=== PATIENT | female | born 1980 | race Caucasian/White ===

== ENCOUNTER 2021-05-30 17:05 | Emergency (ER) | payer OTHER, SELFPAY ==
[2021-05-30 17:18] VITALS: BP 125/68; PULSE 118; RESP 20; O2SAT 98
[2021-05-30 19:42] VITALS: BP 152/98; PULSE 117; RESP 20; TEMP 36.3; O2SAT 98
[2021-05-30 20:47] VITALS: BP 123/98; PULSE 102; RESP 25; O2SAT 100
[2021-05-30] MEDS: SODIUM CHLORIDE 0.9% IV 1,000 ML 999 ML IV CONT (21:26)
[2021-05-30] MEDS: ONDANSETRON INJ 4 MG/2 ML VIAL IV PUSH (21:26)
--- NOTE | 2021-05-30 21:37 | ED.GENADULT ---
HPI - General Adult General Chief complaint: Upper Respiratory Infection Stated complaint: COVID+ Time Seen by Provider: 05/30/21 20:26 Source: patient History of Present Illness HPI narrative: 41-year-old female presents emerge department for evaluation of nausea and vomiting that has worsened since her Covid diagnosis. Patient states she is began having symptoms a week ago. Patient tested positive on Monday. Patient states since that point she has had decreased p.o. intake. Patient reports a history of migraines and states she currently does have a migraine. Patient also does report some left upper quadrant abdominal pain that is worse with emesis. Related Data Allergies Allergy/AdvReac Type Severity Reaction Status Date / Time No Known Allergies Allergy Mild Verified 05/30/21 20:46 Review of Systems Review of Systems: CONSTITUTIONAL: Denies fever, chills, or sweats. EYES: Denies visual changes, redness, or discharge. ENT: Denies rhinorrhea, congestion, sore throat, or otalgia. CARDIOVASCULAR: Denies chest pain, palpitations, or edema. RESPIRATORY: Cough and congestion GASTROINTESTINAL: Left upper quadrant abdominal pain with nausea GENITOURINARY: Denies dysuria or hematuria. SKIN: Denies rash or itching. MUSCULOSKELETAL: Denies back pain, joint pain, or myalgia. NEUROLOGIC: Headache PSYCHIATRIC: Anxiety Exam Narrative: APPEARANCE: Well appearing, no pain, no distress, well-nourished. HEAD: normocephalic, atraumatic. EYES: PERRLA/EOMI, conjunctivae clear. NOSE: Normal no drainage RESPIRATORY: Airway patent, respirations nonlabored. Clear to auscultation bilaterally, no rales, rhonchi, wheezing. CARDIOVASCULAR: Regular rate and rhythm without murmurs rubs or gallops. ABDOMINAL: Soft, nontender, nondistended, normal bowel sounds MUSCULOSKELETAL: Moves all extremities. Strength/ROM intact, No edema, No calf tenderness. NEURO: Alert. Cranial nerves II through XII intact. Good gait. Good coordination SKIN: Warm, dry. Normal Color PSYCHIATRIC: Anxiety Course Course Emergency Course: Patient did feel improved with treatment in emergency room. Patient states GI cocktail did help to resolve her abdominal pain. Patient was also treated with Toradol Tylenol and Ativan to help with her anxiety and headache. At time of discharge patient felt significant improvement and was resting comfortably in the bed. Vital Signs Vital signs: Vital Signs Pulse Rate 118 H 05/30/21 17:18 Respiratory Rate 20 05/30/21 17:18 Blood Pressure 125/68 05/30/21 17:18 Pulse Oximetry 98 05/30/21 17:18 Temperature 97.3 F L 05/30/21 19:42 Pulse Rate 104 H 05/31/21 00:51 Respiratory Rate 22 H 05/31/21 00:51 Blood Pressure 130/74 05/31/21 00:51 Pulse Oximetry 94 05/31/21 00:51 Medical Decision Making Vital Signs Vital Signs: Vital Signs Pulse Rate 118 H 05/30/21 17:18 Respiratory Rate 20 05/30/21 17:18 Blood Pressure 125/68 05/30/21 17:18 Pulse Oximetry 98 05/30/21 17:18 Temperature 97.3 F L 05/30/21 19:42 Pulse Rate 104 H 05/31/21 00:51 Respiratory Rate 22 H 05/31/21 00:51 Blood Pressure 130/74 05/31/21 00:51 Pulse Oximetry 94 05/31/21 00:51 Lab Data Lab results reviewed: Yes I reviewed the patient's lab results. Result diagrams: 05/30/21 21:30 05/30/21 21:30 Labs: Lab Results 05/30/21 05/30/21 05/30/21 Range/Units 21:30 21:30 21:30 WBC 2.8 L (4.5-10.0) K/mm3 RBC 4.83 (4.2-5.4) M/mm3 Hgb 13.9 (12.0-15.0) g/dL Hct 41.1 (37.0-47.0) % MCV 85.1 (80-100) fl MCH 28.8 (26-34) pg MCHC 33.8 (32-36) g/dl RDW 13.3 (11.5-14.5) % Plt Count 159 (150-375) k/mm3 MPV 10.7 H (7.4-10.4) fl Immature Gran % (Auto) 0.4 (0-0.5) % Neut % (Auto) 60.3 (45.5-73.1) % Lymph % (Auto) 33.9 (18.3-44.2) % [place] % (Auto) 5.4 (2.6-8.5) % Eos % (Auto) 0.0 (0-4.4) % Baso % (Auto) 0.0 L (0.2-1.2) % Lym
[2021-05-30 21:39] LABS: Hematocrit 41.1 % (37.0-47.0); Hemoglobin 13.9 g/dL (12.0-15.0); Immature Granulocyte Absolute 0.01 K/mm3 (0.00-0.031); Immature Granulocyte Percent A 0.4 % (0-0.5); Lymphocytes Absolute Auto 0.94 K/mm3 (0.9-3.2); Lymphocytes Percent Auto 33.9 % (18.3-44.2); Mean Corpuscular HGB Conc 33.8 g/dl (32-36); Mean Corpuscular Hemoglobin 28.8 pg (26-34); Mean Corpuscular Volume 85.1 fl (80-100); Mean Platelet Volume 10.7 fl (7.4-10.4); Monocytes Absolute Auto 0.2 K/mm3 (0.1-0.6); Monocytes Percent Auto 5.4 % (2.6-8.5); Neutrophils Absolute Auto 1.7 K/mm3 (1.3-6.7); Neutrophils Percent Auto 60.3 % (45.5-73.1); Platelet Count Result 159 k/mm3 (150-375); Red Blood Count 4.83 M/mm3 (4.2-5.4); Red Cell Distribution Width 13.3 % (11.5-14.5); White Blood Count 2.8 K/mm3 (4.5-10.0)
[2021-05-30 21:45] LABS: Lipase 61 U/L (23-300)
[2021-05-30 21:55] LABS: Alanine Aminotransferase 58 U/L (4-35); Albumin Level 4.3 g/dL (3.5-5.1); Alkaline Phosphatase 65 U/L (38-126); Anion Gap 9 mmol/L (8-16); Aspartate Amino Transferase 87 U/L (14-36); Bilirubin,Total 0.5 mg/dL (0.2-1.3); Blood Urea Nitrogen 10 mg/dL (7-17); Calcium 8.7 mg/dL (8.4-10.2); Carbon Dioxide 22 mmol/L (22-30); Chloride 103 mmol/L (98-107); Estimated CRCL calculation 130 ml/min; Estimated Glomerular Filt Rate > 60; Glucose 118 mg/dL (65-110); Potassium 3.4 mmol/L (3.4-5.0); Sodium 134 mmol/L (137-145)
[2021-05-30 22:20] LABS: Add Urine Microscopic? YES; Amorphous Sediment Urine Moderate; Appearance Urine Turbid (Clear); Bacteria Urine Trace /hpf; Bilirubin Urine Negative (Negative); Blood Urine 3+ (Negative); Color Urine Yellow (Yellow); Glucose Urine UA Negative (Negative); Ketones Urine 1+ mg/dL (Negative); Leukocyte Esterase Ur Negative LEU/UL (Negative); Mucus Urine Heavy /lpf; Nitrate Urine Negative (Negative); Protein Urine 2+ mg/dL (Negative); RBC Urine >75 /hpf (0-2); Squamous Epithelial Cell Urine Many /hpf (Few); Urobilinogen Urine Negative mg/dL (<2.0); WBC Urine 0-3 /hpf
[2021-05-30 22:22] LABS: Specific Grav Ur 1.036 (1.001-1.035)
[2021-05-30] MEDS: KETOROLAC 15 MG/ML VIAL (*BKC) IV PUSH (22:36)
[2021-05-30] MEDS: BELLADONNA ALK/PHENOB ELIX 10 ML, MAG HYDROX/ALUMINUM HYD/SIMETH 30 ML, LIDOCAINE HCL 2... PO (22:38)
[2021-05-30 22:42] VITALS: BP 140/87; PULSE 107; RESP 22; O2SAT 97
[2021-05-30 23:30] VITALS: BP 144/86; PULSE 96; RESP 22; O2SAT 94
[2021-05-30] MEDS: LORazepam INJ (*CRX) 2 MG/ML VIAL 1 MG IV PUSH (23:36)
[2021-05-31 00:51] VITALS: BP 130/74; PULSE 104; RESP 22; O2SAT 94
== END 2021-05-31 00:53 | disposition home or self-care (01) ==
PROVIDERS: Emergency Provider Emergency Medicine
DX: U07.1 COVID-19 (principal); R10.12 Left upper quadrant pain; R11.2 Nausea with vomiting, unspecified
CPT/HCPCS: 36415; 80053; 81001; 83605; 83690; 85025; 96361; 96374; 96375; 99284; A9270; J0131; J1885; J2060; J2405; J7030

== ENCOUNTER 2021-06-01 12:19 | Emergency (ER) | payer OTHER, SELFPAY ==
--- NOTE | ~2021-06-01 | CT_ITS ---
EXAMINATION: CTA chest PE abdomen pel DATE: 06/01/2021 14:15 INDICATION: Tachycardia, left upper quadrant abdominal pain, intractable vomiting. Positive Covid. TECHNIQUE: Computed tomography (CT) of the chest, abdomen and pelvis was performed with 100 cc Omnipa que 350 intravenous contrast. Automated exposure control and iterative reconstruction technique were employed. Exam dose: 2396.08 mGy-cm total exam DLP. COMPARISON: 08/10/2017 two-view chest FINDINGS: There are scattered patchy infiltrates throughout both lungs, without pleural effusion, lik miley due to bilateral Covid pneumonia. There is mild lateral mild hilar and mediastinal lymphadenopathy, likely reactive. No thoracic aortic aneurysm or dissection. No pericardial or pleural effusion. The liver, gallbladder, bile ducts, spleen, pancreas, pancreatic duct, and adrenal glands and kidneys are unremarkable except for hepatic steatosis. No urinary tract calculus or hydroureteronephrosis. Retroflexed uterus. The ovaries are unremarkable in appearance. The urinary bladder is unremarkable. Normal caliber of the abdominal aorta. No intraperitoneal or retroperitoneal or pelvic mass lesion or adenopathy or ascites. Normal appendix. No bowel obstruction, bowel wall thickening, pneumatosis or intraperitoneal free air is detected. Small fat-containing umbilical hernia. There is severe degenerative disc disease at L5-S1. Bilateral hip osteoarthritis. No suspicious osteolytic or osteoblastic lesions are noted. IMPRESSION: Diffuse patchy bilateral pulmonary infiltrates likely due to Covid pneumonia, with react mark mild bilateral hilar and mediastinal lymphadenopathy Hepatic steatosis Retroflexed uterus Normal appendix. No bowel obstruction or free air Reviewed, dictated and finalized at [facility] Reviewed, dictated and finalized at [facility] [employer] IMPRESSION: Diffuse patchy bilateral pulmonary infiltrates likely due to Covid pneumonia, with reactive mild bilateral hilar and mediastinal lymphadenopathy Hepatic steatosis Retroflexed uterus Normal appendix. No bowel obstruction or free air
[2021-06-01 12:20] VITALS: BP 112/93; PULSE 112; RESP 20; TEMP 36.9; O2SAT 96
[2021-06-01 13:00] LABS: Basophils Percent Auto 0.4 % (0.2-1.2); Hematocrit 41.3 % (37.0-47.0); Hemoglobin 13.8 g/dL (12.0-15.0); Immature Granulocyte Absolute 0.01 K/mm3 (0.00-0.031); Immature Granulocyte Percent A 0.4 % (0-0.5); Lymphocytes Absolute Auto 0.91 K/mm3 (0.9-3.2); Lymphocytes Percent Auto 34.5 % (18.3-44.2); Mean Corpuscular HGB Conc 33.4 g/dl (32-36); Mean Corpuscular Hemoglobin 28.8 pg (26-34); Mean Corpuscular Volume 86.2 fl (80-100); Mean Platelet Volume 10.9 fl (7.4-10.4); Monocytes Absolute Auto 0.2 K/mm3 (0.1-0.6); Monocytes Percent Auto 6.8 % (2.6-8.5); Neutrophils Absolute Auto 1.5 K/mm3 (1.3-6.7); Neutrophils Percent Auto 57.9 % (45.5-73.1); Platelet Count Result 125 k/mm3 (150-375); Red Blood Count 4.79 M/mm3 (4.2-5.4); Red Cell Distribution Width 13.3 % (11.5-14.5); White Blood Count 2.6 K/mm3 (4.5-10.0)
[2021-06-01 13:11] LABS: Add Urine Microscopic? YES; Appearance Urine Clear (Clear); Bilirubin Urine Negative (Negative); Blood Urine Negative (Negative); Color Urine Yellow (Yellow); Glucose Urine UA Negative (Negative); Ketones Urine 1+ mg/dL (Negative); Leukocyte Esterase Ur Negative LEU/UL (Negative); Mucus Urine Rare /lpf; Nitrate Urine Negative (Negative); Protein Urine 1+ mg/dL (Negative); RBC Urine 0-2 /hpf (0-2); Specific Grav Ur 1.019 (1.001-1.035); Squamous Epithelial Cell Urine Rare /hpf (Few); Urobilinogen Urine Negative mg/dL (<2.0)
[2021-06-01 13:12] LABS: Alanine Aminotransferase 76 U/L (4-35); Albumin Level 4.1 g/dL (3.5-5.1); Alkaline Phosphatase 55 U/L (38-126); Anion Gap 7 mmol/L (8-16); Aspartate Amino Transferase 131 U/L (14-36); Bilirubin,Total 0.5 mg/dL (0.2-1.3); Blood Urea Nitrogen 9 mg/dL (7-17); Calcium 8.6 mg/dL (8.4-10.2); Carbon Dioxide 23 mmol/L (22-30); Chloride 102 mmol/L (98-107); Estimated CRCL calculation 129 ml/min; Estimated Glomerular Filt Rate > 60; Glucose 121 mg/dL (65-110); Lipase 72 U/L (23-300); Potassium 3.9 mmol/L (3.4-5.0); Sodium 132 mmol/L (137-145)
--- NOTE | 2021-06-01 13:54 | ECG_ITS ---
Measurements Intervals Freedom Rate: 104 P: 30 NC: 162 QRS: 20 QRSD: 85 T: -7 QT: 344 QTc: 453 Interpretive Statements SINUS TACHYCARDIA MINIMAL Q WAVES- INFERIOR LEADS NONSPECIFIC T-WAVE ABNORMALITY- ANT/INF LEADS BASELINE ARTIFACT- I, II, III, AVR, AVL, AVF BORDERLINE ECG Electronically Signed On 06-01-2021 14:29:07 [employer]INDOWS SYSTEMS ADMINISTRATOR by Sajan Bess D.O.
--- NOTE | 2021-06-01 13:56 | ED.GENADULT ---
HPI - General Adult General Chief complaint: Abdominal Pain Stated complaint: ABD PAIN,NAUSEA,COVID + Time Seen by Provider: 06/01/21 12:23 Source: patient Mode of arrival: ambulatory Limitations: no limitations History of Present Illness HPI narrative: Patient presents for evaluation of abdominal pain. She indicates two weeks ago she developed sinus congestion and a cough. She states that her symptoms improved a few days later. However, last week she developed fevers, nonproductive cough and headache. She went to a COVID testing center and had a positive test on 05/28/21. She has experienced abdominal pain for the past four days. Pain is throughout her entire abdomen and described as squeezing and twisting , rated 10/10 in severity. She has experienced nausea, vomiting and diarrhea. She states that her PCP put her on azithromycin and tessalon last Monday but she did not start the medication until the following day. She has had difficulty keeping anything down. She has attempted to take tylenol and zofran with minimal improvement in her symptoms. She denies any urinary symptoms, vaginal bleeding or discharge. LMP 02/11 which she attributes to use of Depo-Provera. Her last injection of Depo was in February 2021. She tried taking tylenol and zofran without improvement in her symptoms. She states she feels short of breath which she attributes to her abdominal pain. no recent sick contacts to her knowledge. She has not received COVID vaccination. Related Data Allergies Allergy/AdvReac Type Severity Reaction Status Date / Time latex Allergy Rash Verified 06/01/21 12:25 Review of Systems Review of Systems: CONSTITUTIONAL: Reports fever. Denies chills, or sweats. EYES: Denies visual changes, redness, or discharge. ENT: Reports recent nasal congestion, improving. Denies sore throat, or otalgia. CARDIOVASCULAR: Denies chest pain, palpitations, or edema. RESPIRATORY: Reports cough and SOB. GASTROINTESTINAL: Reports abdominal pain, nausea, vomiting. GENITOURINARY: Denies dysuria or hematuria. SKIN: Denies rash or itching. MUSCULOSKELETAL: Denies back pain, joint pain, or myalgia. NEUROLOGIC: Reports headache. Denies numbness, dizziness, or weakness. PSYCHIATRIC: Denies anxiety or depression. [facility] Past Medical History Medical History (Updated 06/01/21 @ 18:03 by Kory Villarreal, ACTUARIAL MANAGER, ) No pertinent past medical history Surgical History Surgical History No pertinent past surgical history Family History Family History Mother Family history non-contributory Social History Social History Substance use: never Living arrangements: with roommate(s) Gender identity (if verbalized by the patient): Female Spiritual care concerns: No Exam Narrative: GENERAL: Appears acutely ill but nontoxic HEAD: Normocephalic, atraumatic. EYES: PERRLA and EOMI. ENT: Nares clear, no rhinorrhea or epistaxis. Mucous membranes moist. Oropharynx without tonsillar hypertrophy exudate or other lesions. Bilateral TMs pearly ruffin nonbulging NECK: Supple. No adenopathy or masses. No carotid bruits or JVD CHEST: Clear to auscultation. Cough present on exam. No respiratory distress. No wheezes rales or rhonchi HEART: Rate 115. Normal rhythm. No murmur heard. Normal peripheral pulses. ABDOMEN: Soft, diffuse tenderness without rebound or guarding. Nondistended, normal active bowel sounds. EXTREMITIES: Normal range of motion. No edema. SKIN: Warm, dry, no rash. NEURO: No focal deficits. Alert and oriented x3. PSYCH: Anxious Course Course Emergency Course: This is a 41-year-old female who presented with reports of abdominal pain with recent diagnosis of Covid. She was initially tachycardic so sepsis protocol was initiated. She was hydrated She was given P
[2021-06-01] MEDS: FAMOTIDINE 20 MG/2 ML VIAL IV PUSH (14:32)
[2021-06-01] MEDS: SODIUM CHLORIDE 0.9% IV 1,000 ML 999 ML IV CONT ×2 (14:32→16:32)
[2021-06-01] MEDS: METOCLOPRAMIDE HCL INJ 10 MG/2 ML VIAL IV PUSH (14:33)
[2021-06-01] MEDS: MORPHINE SULFATE (*CRX) 2 MG/ML INJ IV PUSH (14:33)
[2021-06-01] MEDS: diphenhydrAMINE HCl INJ 50 MG/ML VIAL 25 MG IV PUSH (14:33)
[2021-06-01 14:39] VITALS: PULSE 102; RESP 20; O2SAT 95
[2021-06-01 15:05] LABS: Lactic Acid Reflex 0.9 mmol/L (0.7-2.1)
[2021-06-01 15:20] LABS: Troponin I < 0.012 ng/mL (0.000-0.034)
[2021-06-01 16:03] VITALS: BP 110/71; PULSE 95; RESP 18; O2SAT 100
[2021-06-01 17:41] LABS: Troponin I < 0.012 ng/mL (0.000-0.034)
[2021-06-01] MEDS: ACETAMINOPHEN/BUTALBITAL/CAFFEINE 325-50-40 MG TABLET (FIORICET) 1 TAB PO (18:08)
[2021-06-01 18:32] VITALS: BP 110/71; PULSE 104; RESP 18; O2SAT 98
== END 2021-06-01 18:45 | disposition home or self-care (01) ==
PROVIDERS: Emergency Medicine; Emergency Provider Nurse Practitioner
DX: U07.1 COVID-19 (principal); J12.82 Pneumonia due to coronavirus disease 2019; R10.84 Generalized abdominal pain; G44.209 Tension-type headache, unspecified, not intractable; R11.2 Nausea with vomiting, unspecified; K76.0 Fatty (change of) liver, not elsewhere classified; N85.4 Malposition of uterus; R00.0 Tachycardia, unspecified; R94.31 Abnormal electrocardiogram [ECG] [EKG]
CPT/HCPCS: 36415; 71275; 74177; 80053; 81001; 81025; 83605; 83690; 84484; 85025; 87804; 93005; 96361; 96374; 96375; 99284; A9270; J1200; J2270; J2765; J7030; Q9967